=== PATIENT | female | born 1980 | race Caucasian/White ===

== ENCOUNTER 2016-09-24 21:28 | Inpatient (IN) | payer OTHER ==
[~2016-09-24] VITALS: Ht 162.6 cm; Wt 99.8 kg
[2016-09-24] MEDS ORDERED: OXYTOCIN 30 UNITS/LACT RINGERS 500 ML IV ONE (21:53)
[2016-09-24] MEDS ORDERED: RINGERS SOLUTION,LACTATED 1,000 ML IV PRN ×2 (21:53→22:00)
[2016-09-24] MEDS ORDERED: CITRIC ACID/SODIUM CITRATE 30 ML SOLUTION UDCUP PO PRN ×2 (22:00)
[2016-09-24] MEDS ORDERED: METOCLOPRAMIDE HCL 5 MG/ML 2 ML VIAL IVP PRN ×2 (22:00)
[2016-09-24] MEDS ORDERED: RINGERS SOLUTION,LACTATED 1,000 ML IV SCH (22:00)
[2016-09-24 22:17] LABS: BASOPHILS % (AUTO) 0.5 % (0.0-2.0); EOSINOPHILS % (AUTO) 1.8 % (1.0-6.0); HEMATOCRIT 34.9 % (36-46); HEMOGLOBIN 11.5 g/dL (12.0-16.0); LYMPHOCYTES # (AUTO) 1.9 K/uL (1.0-4.8); LYMPHOCYTES % (AUTO) 19.8 % (22.0-44.0); MEAN CORPUSCULAR HGB CONC 32.9 G/dL (31.0-37.0); MEAN CORPUSCULAR VOLUME 82 fL (80-100); MONOCYTES # (AUTO) 0.7 K/uL (0.1-1.0); MONOCYTES % (AUTO) 7.2 % (2.0-9.0); NEUTROPHILS # (AUTO) 6.9 K/uL (1.8-7.7); NEUTROPHILS % (AUTO) 70.7 % (40.0-70.0); RED BLOOD CELL COUNT(AUTO) 4.26 MIL/uL (4.00-5.20); RED CELL DISTRIBUTION WIDTH 13.8 % (11.5-14.5); WHITE BLOOD COUNT (AUTO) 9.8 K/uL (4.5-11.0)
[2016-09-24 22:55] VITALS: BP 111/70
[2016-09-24] MEDS ORDERED: LEVO175T4 PO (23:03)
[2016-09-24] MEDS ORDERED: PREN1TAB80 PO (23:03)
[2016-09-25] MEDS: RINGERS SOLUTION,LACTATED 1,000 ML IV SCH ×3 (00:34→21:42)
[2016-09-25] MEDS: MISOPROSTOL 25 MCG TABLET VG SCH ×5 (00:53→16:58)
[2016-09-25] MEDS: FentaNYL CITRATE-PF 100 MCG/2 ML VIAL IVP PRN ×4 (06:37→19:55)
[2016-09-25] MEDS ORDERED: OXYGEN THERAPY IH SCH (08:00)
[2016-09-25] MEDS ORDERED: DEXTROSE 5%-0.45% SODIUM CHL 1,000 ML IV ONE (08:43)
[2016-09-25] MEDS ORDERED: OXYTOCIN 30 UNITS/LACT RINGERS 500 ML IV PRN (17:15)
[2016-09-25] MEDS ORDERED: LEVOTHYROXINE SODIUM 50 MCG TABLET PO ONE (19:00)
[2016-09-25] MEDS ORDERED: LIDOCAINE HCL/PF 2% 5 ML VIAL ONE (21:37)
[2016-09-25] MEDS ORDERED: FentaNYL/BUPIV 0.125%/NS/PF 200 ML ED ONE (21:38)
[2016-09-25] MEDS ORDERED: FentaNYL/BUPIV 0.125%/NS/PF 200 ML ED PRN (22:00)
[2016-09-25] MEDS ORDERED: DiphenhydrAMINE HCL 50 MG/ML VIAL IVP PRN (22:00)
[2016-09-25] MEDS ORDERED: ONDANSETRON HCL 4 MG/2 ML VIAL IVP PRN (22:00)
[2016-09-25] MEDS ORDERED: NALBUPHINE HCL 10 MG/ML VIAL IVP PRN (22:00)
[2016-09-25] MEDS ORDERED: PROMETHAZINE HCL 12.5 MG in SODIUM CHLORIDE 0.9% 50 ML IV PRN (22:00)
[2016-09-26] MEDS: RINGERS SOLUTION,LACTATED 1,000 ML IV SCH (02:52)
[2016-09-26] MEDS ORDERED: LIDOCAINE HCL/PF 2% 5 ML VIAL ONE (03:37)
[2016-09-26] MEDS ORDERED: LIDOCAINE HCL/PF 1% 30 ML VIAL ONE (05:25)
[2016-09-26] MEDS ORDERED: BENZOCAINE 20%/MENTHOL 56 GM SPRAY CANISTER TP PRN (05:45)
[2016-09-26] MEDS ORDERED: LANOLIN 7 GM OINTMENT TP PRN (05:45)
[2016-09-26] MEDS ORDERED: GLYCERIN/WITCH HAZEL LEAF 40 PADS JAR TP PRN (05:45)
[2016-09-26] MEDS ORDERED: OxyCODONE HCL/ACETAMINOPHEN 5-325 MG TABLET PO PRN (05:45)
[2016-09-26] MEDS ORDERED: METHYLERGONOVINE MALEATE 0.2 MG TABLET PO PRN (05:45)
[2016-09-26] MEDS: MAGNESIUM HYDROXIDE SUSPENSION 30 ML UDCUP PO PRN ×2 (09:22→22:03)
[2016-09-26] MEDS: IBUPROFEN 800 MG TABLET PO PRN ×2 (09:22→17:22)
[2016-09-26] MEDS: SENNA/DOCUSATE SODIUM 187-50 MG TABLET PO PRN ×2 (09:22→22:03)
[2016-09-26] MEDS: OxyCODONE HCL/ACETAMINOPHEN 5-325 MG TABLET PO PRN (22:04)
[2016-09-27] MEDS: IBUPROFEN 800 MG TABLET PO PRN (02:44)
[2016-09-27] MEDS: OxyCODONE HCL/ACETAMINOPHEN 5-325 MG TABLET PO PRN ×2 (02:44→06:53)
[2016-09-27] MEDS ORDERED: LEVOTHYROXINE SODIUM 88 MCG TABLET PO SCH (06:30)
[2016-09-27 06:47] LABS: BASOPHILS % (AUTO) 0.5 % (0.0-2.0); EOSINOPHILS % (AUTO) 2.2 % (1.0-6.0); HEMOGLOBIN 10.9 g/dL (12.0-16.0); LYMPHOCYTES # (AUTO) 2.7 K/uL (1.0-4.8); LYMPHOCYTES % (AUTO) 26.5 % (22.0-44.0); MEAN CORPUSCULAR HEMOGLOBIN 27.5 pg (26.0-34.0); MEAN CORPUSCULAR HGB CONC 32.9 G/dL (31.0-37.0); MEAN CORPUSCULAR VOLUME 84 fL (80-100); MONOCYTES # (AUTO) 0.8 K/uL (0.1-1.0); MONOCYTES % (AUTO) 7.6 % (2.0-9.0); NEUTROPHILS # (AUTO) 6.4 K/uL (1.8-7.7); NEUTROPHILS % (AUTO) 63.2 % (40.0-70.0); RED BLOOD CELL COUNT(AUTO) 3.95 MIL/uL (4.00-5.20); RED CELL DISTRIBUTION WIDTH 13.9 % (11.5-14.5); WHITE BLOOD COUNT (AUTO) 10.2 K/uL (4.5-11.0)
[2016-09-27] MEDS ORDERED: DSS100 PO (12:18)
[2016-09-27] MEDS ORDERED: FERR-89 PO (12:18)
[2016-09-27] MEDS ORDERED: IBUP-1547 PO (12:19)
[2016-09-27] MEDS ORDERED: ANUSHCS PR (12:20)
== END 2016-09-27 13:00 | disposition home or self-care (01) | DRG 775 ==
LOC: 4S 21:28 → OBSVTOIN 21:28
PROVIDERS: ADMIT Specialist; ATTEND Specialist
PROC: 3E0S3CZ (ICD-10-PCS; 2016-09-25)
PROC: 00HU33Z Insertion of Infusion Device into Spinal Canal, Percutaneous Approach (ICD-10-PCS; 2016-09-25)
PROC: 10E0XZZ Delivery of Products of Conception, External Approach (ICD-10-PCS; principal; 2016-09-26)
PROC: 0W8NXZZ Division of Female Perineum, External Approach (ICD-10-PCS; 2016-09-26)
DX: O99.284 Endocrine, nutritional and metabolic diseases complicating childbirth (principal); E03.9 Hypothyroidism, unspecified; Z3A.42 42 weeks gestation of pregnancy; Z37.0 Single live birth; Z85.850 Personal history of malignant neoplasm of thyroid
CPT/HCPCS: J2590; J3010; J3490; J7120

== ENCOUNTER 2019-08-19 21:32 | Inpatient (IN) | payer OTHER ==
[~2019-08-19] VITALS: Ht 162.6 cm; Wt 98.9 kg
[~2019-08-19 21:32] MED LIST: ANUSHCS PR; DSS100 PO; FERR-89 PO; IBUP-2071 PO; LEVO175T4 PO; PREN1TAB80 PO
[2019-08-19] MEDS ORDERED: OXYTOCIN 30 UNITS/LACT RINGERS 500 ML IV ONE (22:44)
[2019-08-19] MEDS ORDERED: RINGERS SOLUTION,LACTATED 1,000 ML IV ONE (22:44)
[2019-08-19] MEDS ORDERED: RINGERS SOLUTION,LACTATED 1,000 ML IV SCH (22:44)
[2019-08-19] MEDS ORDERED: FentaNYL CITRATE-PF 100 MCG/2 ML VIAL IVP PRN (22:45)
[2019-08-19] MEDS ORDERED: LIDOCAINE/PF 1% 30 ML VIAL INJ PRN (22:45)
[2019-08-19] MEDS ORDERED: CITRIC ACID/SODIUM CITRATE 30 ML SOLUTION UDCUP PO PRN (22:45)
[2019-08-19] MEDS ORDERED: METOCLOPRAMIDE HCL 5 MG/ML 2 ML VIAL IVP PRN (22:45)
[2019-08-19 23:05] VITALS: BP 128/82
[2019-08-19] MEDS ORDERED: INFLUENZA VIRUS VACCINE QVS 2019-20 (3YR+)/PF 60 MCG/0.5 ML SYRINGE IM ONE (23:15)
[2019-08-19] MEDS: MISOPROSTOL 50 MCG TABLET VG SCH (23:44)
[2019-08-19 23:49] LABS: BASOPHILS % (AUTO) 0.7 % (0.0-2.0); EOSINOPHILS % (AUTO) 3.2 % (1.0-6.0); HEMATOCRIT 35.4 % (36-46); LYMPHOCYTES # (AUTO) 1.9 K/uL (1.0-4.8); LYMPHOCYTES % (AUTO) 24.5 % (22.0-44.0); MEAN CORPUSCULAR HEMOGLOBIN 27.8 pg (26.0-34.0); MEAN CORPUSCULAR HGB CONC 33.8 G/dL (31.0-37.0); MEAN CORPUSCULAR VOLUME 82 fL (80-100); MONOCYTES # (AUTO) 0.7 K/uL (0.1-1.0); MONOCYTES % (AUTO) 8.4 % (2.0-9.0); NEUTROPHILS % (AUTO) 63.2 % (40.0-70.0); PLATELET COUNT (AUTO)-OB 218 K/uL (150-450)
[2019-08-20] MEDS: MISOPROSTOL 50 MCG TABLET VG SCH ×2 (04:07→08:03)
[2019-08-20] MEDS ORDERED: LEVOTHYROXINE SODIUM 100 MCG TABLET PO SCH ×2 (06:00→13:00)
[2019-08-20] MEDS ORDERED: OXYTOCIN 30 UNITS/LACT RINGERS 500 ML IV ONE (13:07)
[2019-08-20] MEDS ORDERED: ROPIVACAINE HCL/PF 0.2% 100 ML ED ONE (14:46)
[2019-08-20] MEDS ORDERED: DiphenhydrAMINE HCL 50 MG/ML VIAL IVP PRN (15:15)
[2019-08-20] MEDS ORDERED: ONDANSETRON HCL 4 MG/2 ML VIAL IVP PRN (15:15)
[2019-08-20] MEDS ORDERED: ROPIVACAINE HCL/PF 0.2% 100 ML ED PRN (15:15)
[2019-08-20] MEDS ORDERED: LANOLIN 7 GM OINTMENT TP PRN (16:15)
[2019-08-20] MEDS ORDERED: BENZOCAINE 20%/MENTHOL 56 GM SPRAY CANISTER TP PRN (16:15)
[2019-08-20] MEDS ORDERED: OxyCODONE HCL/ACETAMINOPHEN 5-325 MG TABLET PO PRN (16:15)
[2019-08-20] MEDS ORDERED: GLYCERIN/WITCH HAZEL LEAF 40 PADS JAR TP PRN (16:15)
[2019-08-20] MEDS ORDERED: METHYLERGONOVINE MALEATE 0.2 MG TABLET PO PRN (16:15)
[2019-08-20] MEDS: IBUPROFEN 800 MG TABLET PO PRN (18:47)
[2019-08-20] MEDS: SENNA/DOCUSATE SODIUM 8.6-50 MG TABLET PO PRN (21:27)
[2019-08-20] MEDS: MAGNESIUM HYDROXIDE SUSPENSION 30 ML UDCUP PO PRN (21:27)
[2019-08-20] MEDS: OxyCODONE HCL/ACETAMINOPHEN 5-325 MG TABLET PO PRN (21:28)
[2019-08-21] MEDS: IBUPROFEN 800 MG TABLET PO PRN ×3 (05:21→18:00)
[2019-08-21 07:02] LABS: BASOPHILS % (AUTO) 0.3 % (0.0-2.0); EOSINOPHILS % (AUTO) 1.8 % (1.0-6.0); HEMATOCRIT 34.1 % (36-46); HEMOGLOBIN 11.8 g/dL (12.0-16.0); MEAN CORPUSCULAR HEMOGLOBIN 28.3 pg (26.0-34.0); MEAN CORPUSCULAR HGB CONC 34.5 G/dL (31.0-37.0); MEAN CORPUSCULAR VOLUME 82 fL (80-100); MONOCYTES # (AUTO) 0.8 K/uL (0.1-1.0); MONOCYTES % (AUTO) 7.4 % (2.0-9.0); NEUTROPHILS # (AUTO) 7.5 K/uL (1.8-7.7); NEUTROPHILS % (AUTO) 71.5 % (40.0-70.0); PLATELET COUNT (AUTO)-OB 187 K/uL (150-450); RED BLOOD CELL COUNT(AUTO) 4.16 MIL/uL (4.00-5.20); RED CELL DISTRIBUTION WIDTH 14.2 % (11.5-14.5)
[2019-08-21] MEDS: OxyCODONE HCL/ACETAMINOPHEN 5-325 MG TABLET PO PRN (10:26)
[2019-08-21] MEDS: MAGNESIUM HYDROXIDE SUSPENSION 30 ML UDCUP PO PRN (10:27)
[2019-08-21] MEDS: SENNA/DOCUSATE SODIUM 8.6-50 MG TABLET PO PRN (10:27)
[2019-08-21] MEDS ORDERED: IBUP-2071 PO (18:26)
[2019-08-21] MEDS ORDERED: SENN8.6T90 PO (18:27)
== END 2019-08-21 19:00 | disposition home or self-care (01) | DRG 807 ==
LOC: OBSVTOIN 21:32 → 4S 21:32
PROVIDERS: ADMIT Specialist; ATTEND Specialist
PROC: 10E0XZZ Delivery of Products of Conception, External Approach (ICD-10-PCS; principal; 2019-08-20)
PROC: 0HQ9XZZ Repair Perineum Skin, External Approach (ICD-10-PCS; 2019-08-20)
PROC: 3E0R3BZ Introduction of Anesthetic Agent into Spinal Canal, Percutaneous Approach (ICD-10-PCS; 2019-08-20)
PROC: 00HU33Z Insertion of Infusion Device into Spinal Canal, Percutaneous Approach (ICD-10-PCS; 2019-08-20)
DX: O40.3XX0 Polyhydramnios, third trimester, not applicable or unspecified (principal); Z37.0 Single live birth; O70.0 First degree perineal laceration during delivery; Z3A.38 38 weeks gestation of pregnancy
CPT/HCPCS: 76811; 86850; 86900; 86901; J2590; J2795; J7120